=== PATIENT | female | born 1965 | race African-American/Black ===

== ENCOUNTER 2022-07-17 20:50 | Emergency (ER) | payer OTHER ==
[2022-07-17 21:19] VITALS: BP 132/83; PULSE 78; RESP 19; TEMP 98.2; BMI 30.9
[2022-07-17 22:47] LABS: BASO % 0.9 % (0-2.0); EOS % 1.4 % (0-4.5); HEMATOCRIT 40.5 % (32.4-45.2); HEMOGLOBIN 13.3 GM/dL (10.7-15.3); LYMPH % 28.6 % (8-40); MCH 28.4 pg (25.7-33.7); MCHC 32.9 g/dl (32.0-36.0); MEAN CELL VOLUME 86.3 fl (80-96); MEAN PLT VOLUME 7.6 fl (7.5-11.1); MONO % 10.4 % (3.8-10.2); NEUT % 58.7 % (42.8-82.8); PLATELET COUNT 349 10^3/uL (134-434); WHITE BLOOD COUNT 6.8 K/mm3 (4.0-10.0)
[2022-07-17 22:58] LABS: CHLORIDE 106 mmol/L (98-107); SODIUM 140 mmol/L (136-145)
[2022-07-17 23:00] LABS: CALCIUM 9.6 mg/dL (8.5-10.1)
[2022-07-17 23:01] LABS: ALBUMIN 3.7 g/dl (3.4-5.0); CO2 28 mmol/L (21-32); GLUCOSE,RANDOM 94 mg/dL (74-106)
[2022-07-17 23:04] LABS: CREATININE 1.2 mg/dL (0.55-1.3); SGOT/AST 80 U/L (15-37)
[2022-07-17 23:05] LABS: TOT PROT 7.9 g/dl (6.4-8.2)
[2022-07-17 23:06] LABS: ALK PHOS 103 U/L (45-117); BILIRUBIN,TOTAL 0.4 mg/dL (0.2-1)
[2022-07-17 23:07] LABS: ANION GAP 6 MMOL/L (8-16); SGPT/ALT 34 U/L (13-61)
[2022-07-18 00:30] LABS: CALCIUM 9.4 mg/dL (8.5-10.1)
[2022-07-18 00:31] LABS: BLOOD UREA NITROGEN 16.8 mg/dL (7-18)
[2022-07-18 00:34] LABS: CREATININE 0.7 mg/dL (0.55-1.3)
== END 2022-07-18 00:52 | disposition home or self-care (01) ==
LOC: JER 20:50
DX: R07.89 Other chest pain (principal)
CPT/HCPCS: 36415; 71045-TC-FY; 80048; 80053; 84484; 85025; 93005; 93010; 99285-25

== ENCOUNTER 2022-07-31 23:27 | Emergency (ER) | payer OTHER ==
[2022-07-31 23:36] VITALS: BP 133/70; PULSE 62; RESP 18; TEMP 97.6; BMI 30.9
[2022-08-01] MEDS ORDERED: IBUPROFEN 400 MG TABLET (FP) PO ONE ×2 (00:01→01:42)
[2022-08-01] MEDS ORDERED: MAG HYDROX/AL HYDROX/SIMETH 30 ML UNIT-DOSE CUP PO ONE (00:02)
[2022-08-01] MEDS ORDERED: FAMOTIDINE 20 MG/50 ML IVPB 20 MG/50 ML MG IVPB ONE (00:02)
[2022-08-01] MEDS ORDERED: FAMOTIDINE 10 MG TABLET PO ONE (01:32)
[2022-08-01] MEDS ORDERED: FAMOTIDINE 20 MG TABLET ONE (01:41)
[2022-08-01] MEDS ORDERED: MAG HYDROX/AL HYDROX/SIMETH 30 ML UNIT-DOSE CUP ONE (01:42)
[2022-08-01] MEDS ORDERED: GABAPENTIN 300 MG CAPSULE PO ONE (01:46)
[2022-08-01] MEDS ORDERED: GABAPENTIN 300 MG CAPSULE ONE (01:47)
[2022-08-01 01:55] LABS: EOS % 2.9 % (0-4.5); HEMATOCRIT 40.7 % (32.4-45.2); HEMOGLOBIN 13.5 GM/dL (10.7-15.3); LYMPH % 35.6 % (8-40); MCH 28.4 pg (25.7-33.7); MCHC 33.2 g/dl (32.0-36.0); MEAN CELL VOLUME 85.6 fl (80-96); MEAN PLT VOLUME 7.8 fl (7.5-11.1); MONO % 7.6 % (3.8-10.2); NEUT % 52.9 % (42.8-82.8); PLATELET COUNT 341 10^3/uL (134-434); RBC 4.76 M/mm3 (3.60-5.2); RDW 14.1 % (11.6-15.6)
[2022-08-01 02:14] LABS: CALCIUM 9.7 mg/dL (8.5-10.1)
[2022-08-01 02:15] LABS: ALBUMIN 3.7 g/dl (3.4-5.0); BLOOD UREA NITROGEN 16.7 mg/dL (7-18); MAGNESIUM 2.1 mg/dL (1.8-2.4)
[2022-08-01 03:33] LABS: CREATININE 0.8 mg/dL (0.55-1.3)
[2022-08-01 03:34] LABS: BILIRUBIN,TOTAL 0.3 mg/dL (0.2-1); TOT PROT 6.8 g/dl (6.4-8.2)
== END 2022-08-01 04:47 | disposition home or self-care (01) ==
LOC: JER 23:27
DX: R07.9 Chest pain, unspecified (principal)
CPT/HCPCS: 0241U-QW; 36415; 71045-TC-FY; 80053; 83735; 84443; 84484; 85025; 85379; 93005; 93010; 99285-25